=== PATIENT | female | born 1970 | race Caucasian/White ===

== ENCOUNTER 2019-01-23 11:32 | Outpatient (REF) | payer OTHER, SELFPAY | END 2019-01-23 11:52 | LOC: NCHCN 11:32 | PROVIDERS: PCP Nurse Practitioner; Visit Provider Family Medicine | DX: J02.9 Acute pharyngitis, unspecified (principal); R73.03 Prediabetes | CPT/HCPCS: 87070; 87081 ==

== ENCOUNTER 2019-02-04 00:58 | Outpatient (CLI) | payer OTHER, SELFPAY ==
--- NOTE | 2019-02-04 07:40 | DI.MAMMO_ITS ---
SYMPTOM/DIAGNOSIS: SCREENING, Z12.39, [facility], Z00.00 MAMMOGRAMS: Mammograms were interpreted according to the usual protocol including computer analysis with CAD system, tomosynthesis and C view imaging. The breasts are of moderate density with fairly symmetrical distribution of fibroglandular tissue. No dominant mass or clumped microcalcification is identified in either breast. Today's examination is a baseline examination. CONCLUSION: No specific evidence of malignancy at this time. Routine screening examinations are suggested at yearly intervals due to the family history of breast carcinoma. Category 1. Breast density, category B. MQSA ASSESSMENT OF FINDINGS: Negative. Category 1. Patient will receive a letter notifying them of these results. BI-RADS category B. There are scattered areas of fibroglandular density.
== END 2019-02-04 01:18 ==
PROVIDERS: PCP Nurse Practitioner; Visit Provider Nurse Practitioner
DX: Z00.00 Encounter for general adult medical examination without abnormal findings (principal); Z12.31 Encounter for screening mammogram for malignant neoplasm of breast; Z80.3 Family history of malignant neoplasm of breast
CPT/HCPCS: 77063; 77067

== ENCOUNTER 2019-03-18 16:02 | Outpatient (REF) | payer OTHER, SELFPAY ==
[2019-03-18 18:40] LABS: ALT 70 U/L (12-78); AST 31 U/L (15-37); Albumin 3.9 g/dL (3.4-5.0); Alkaline Phosphatase 87 U/L (46-116); Anion Gap 8.4 mmol/L (3-11); BUN 12 mg/dL (7-18); Bilirubin, Total 0.3 mg/dL (0.2-1.0); CO2 28.6 mmol/L (21.0-32.0); CREATININE 0.91 mg/dL (0.55-1.02); Calcium 9.1 mg/dL (8.5-10.1); Calculated LDL 108; Chloride 103 mmol/L (98-107); Cholesterol 197 mg/dL (50-200); Glucose 111 mg/dL (70-100); HDL Cholesterol 43 mg/dL (40-60); Potassium 4.4 mmol/L (3.5-5.1); Sodium 140 mmol/L (136-145); Total Protein 7.4 g/dL (6.4-8.2); Triglyceride 233 mg/dL (30-150)
== END 2019-03-18 16:22 ==
LOC: NCHCN 16:02
PROVIDERS: PCP Nurse Practitioner; Visit Provider Nurse Practitioner
DX: I10 Essential (primary) hypertension (principal); R73.03 Prediabetes
CPT/HCPCS: 80053; 80061; 83721

== ENCOUNTER 2020-03-17 08:34 | Outpatient (REF) | payer OTHER, SELFPAY ==
[2020-03-17 14:50] LABS: ALT 72 U/L (14-59); AST 34 U/L (15-37); Albumin 4.1 g/dL (3.4-5.0); Alkaline Phosphatase 83 U/L (46-116); Anion Gap 9.3 mmol/L (3-11); BUN 16 mg/dL (7-18); Bilirubin, Total 0.5 mg/dL (0.2-1.0); CO2 26.7 mmol/L (21.0-32.0); CREATININE 0.87 mg/dL (0.55-1.02); Calcium 9.2 mg/dL (8.5-10.1); Calculated LDL 153 mg/dL (<100); Chloride 104 mmol/L (98-107); Cholesterol 220 mg/dL (<200); Glucose 112 mg/dL (74-106); HDL Cholesterol 49 mg/dL (40-60); Potassium 4.3 mmol/L (3.5-5.1); Sodium 140 mmol/L (136-145); Total Protein 7.2 g/dL (6.4-8.2); Triglyceride 93 mg/dL (<150)
[2020-03-17 14:55] LABS: Hemoglobin A1C 6.2 % (3.8-5.6)
== END 2020-03-17 08:54 ==
LOC: NCHCN 08:34
PROVIDERS: PCP Nurse Practitioner; Visit Provider Nurse Practitioner
DX: R73.03 Prediabetes (principal); I10 Essential (primary) hypertension
CPT/HCPCS: 80053; 80061; 83036

== ENCOUNTER 2020-03-19 03:01 | Outpatient (CLI) | payer OTHER, SELFPAY ==
--- NOTE | 2020-03-19 | DI.US_ITS ---
EXAM: US PELVIS TRANSVAGINAL CLINICAL HISTORY: <inf_study_reason> TECHNIQUE: Transabdominal and transvaginal imaging was performed using standard protocol. COMPARISON: US PELVIS TRANSVAG from 04/14/2016 FINDINGS: Exam is limited by the patient's body habitus. KIDNEYS: Kidneys are symmetric in size. No evidence of renal calculi. No evidence of hydronephrosis. No renal mass or cyst identified. UTERUS: Anteverted. Uterus measures 9.1 x 4.3 x 4.8 cm. There is a question of a small anterior fibroid. Endometrium: 4 millimeters. Cervix: A few nabothian cysts are seen.. OVARIES: Neither ovary was visualized transabdominally or transvaginally. CUL-DE-SAC: Free fluid: None. IMPRESSION: 1. Limited exam. Normal-sized uterus with question of a small anterior fibroid. Endometrial stripe within normal limits. 2. Nonvisualization of the ovaries. DATA REPOSITORY:
== END 2020-03-19 03:21 ==
PROVIDERS: PCP Nurse Practitioner; Visit Provider Nurse Practitioner
DX: D25.9 Leiomyoma of uterus, unspecified (principal); N93.8 Other specified abnormal uterine and vaginal bleeding
CPT/HCPCS: 76830; 76856

== ENCOUNTER 2020-04-23 01:43 | Outpatient (CLI) | payer OTHER, SELFPAY ==
[2020-04-23 09:05] LABS: TSH (W/Ref FT4) 1.76 uIU/mL (0.36-3.74)
[2020-04-24 09:05] LABS: FSH 30.4 mIU/mL (See Note); Prolactin 5.4 ng/mL (See Table)
== END 2020-04-23 02:03 ==
PROVIDERS: PCP Nurse Practitioner; Visit Provider Obstetrics & Gynecology
DX: N93.9 Abnormal uterine and vaginal bleeding, unspecified (principal); R73.03 Prediabetes
CPT/HCPCS: 36415; 83001; 84146; 84443

== ENCOUNTER 2020-05-05 16:27 | Outpatient (REF) | payer OTHER, SELFPAY ==
--- NOTE | 2020-05-05 15:00 | ENDOMET_PTH ---
PATIENT: Ashley Ly LOC: [facility] U#:[id number] AGE/SX: 49/F ROOM: RE05/05/[address]: Kaitlin White DO : 1970 BED: DIS: 05/05/2020 SPEC #: [id number] RECD: 05/05/20 17:17 STATUS: KENNEDY REQ #: [id number] JONATHON: 05/05/20 15:[address]: Kaitlin White DEPT: Surgical Specimen RECD BY: Carol Keating ENTERED: 05/05/20 17:18 SP TYPE: Endomet OTHR DR: Tea Manuel Tissues: 1 - ENDOMETRIUM BX/CURRETTE 2 - CERVICAL BIOPSY Procedures: GROSS AND MICRO LEVEL 4 Comments: [id number]
== END 2020-05-05 16:47 ==
LOC: LBN 16:27
PROVIDERS: PCP Nurse Practitioner; Visit Provider Obstetrics & Gynecology
DX: N84.1 Polyp of cervix uteri (principal)
CPT/HCPCS: 88305

== ENCOUNTER 2020-09-24 01:45 | Outpatient (CLI) | payer OTHER, SELFPAY ==
[2020-09-24 10:59] LABS: HCT 40.4 % (36.0-46.0); HGB 13.2 g/dL (11.2-15.7); MCH 28.8 pg (27.0-33.0); MCHC 32.7 % (32.0-36.0); MPV 9.7 fL (8.0-11.0); Platelet Count 345 10^3/uL (130-400); RBC 4.59 10^6/uL (3.93-5.22); RDW 11.9 % (11.7-14.6); RDW-SD 38.4 fL; WBC 8.45 10^3/uL (4.4-10.8)
[2020-09-25 18:44] LABS: COVID-19 RT-PCR UVMMC Result Negative (Negative)
== END 2020-09-24 02:05 ==
PROVIDERS: PCP Nurse Practitioner; Visit Provider Obstetrics & Gynecology
DX: D25.9 Leiomyoma of uterus, unspecified (principal); N84.0 Polyp of corpus uteri; Z11.59 Encounter for screening for other viral diseases; Z01.818 Encounter for other preprocedural examination; Z01.812 Encounter for preprocedural laboratory examination
CPT/HCPCS: 36415; 85027; 86850; 86900; 86901; U0003

== ENCOUNTER 2020-09-30 06:10 | Day surgery (SDC) | payer OTHER, SELFPAY ==
[2020-09-30 06:13] VITALS: BP 148/90; PULSE 67; RESP 19; TEMP 36.4; O2SAT 96
[2020-09-30] MEDS: Lactated Ringers 1,000 ML 125 ML IV (07:05)
--- NOTE | 2020-09-30 09:32 | ENDO_PTH ---
PATIENT: Ashley Ly LOC: [facility] U#:[id number] AGE/SX: 49/F ROOM: RE09/30/[address]: Kaitlin White DO : 1970 BED: DIS: 09/30/2020 SPEC #: [id number] RECD: 09/30/20 12:09 STATUS: KENNEDY REShruthi #: [id number] JONATHON: 09/30/20 09:[address]: Kaitlin White DEPT: Surgical Specimen RECD BY: Carol Keating ENTERED: 09/30/20 12:11 SP TYPE: Endo OTHR DR: Tea Manuel Tissues: 1 - ENDOCERVICAL BX/CURRETTE 2 - ENDOMETRIUM BX/CURRETTE Procedures: GROSS AND MICRO LEVEL 4 Comments: [id number]
--- NOTE | 2020-09-30 09:45 | W.PM.OP ---
Date of service: 09/30/20 Time of Service: 09:45 Operative Note Operative Note DATE OF PROCEDURE: 09/30/20 PRE-OP DIAGNOSIS: Thickened endometrium POST-OP DIAGNOSIS: same Uterine fiboids and uterine polyp PROCEDURE: Hysteroscopy with dilation and curettage SURGEON: Kaitlin White ANESTHESIA: MAC ESTIMATED BLOOD LOSS: 5 PATHOLOGY: other (1 endocervix 2. endometrium) COMPLICATIONS: None Patient was transported to: PACU Patient's condition: stable Findings: Suspicion for uterine fibroids Procedure Description: After full informed consent was obtained, patient was taken the operating suite with IV running. She is placed in dorsal supine position and anesthesia administered tested and found to be adequate. She was then placed in the modified dorsal lithotomy position and prepped and draped in usual sterile fashion. Exam under anesthesia revealed a mobile helpful bulky uterus without evidence of adnexal masses. Bladder was drained for approximately 100 cc of clear yellow urine. Speculum was placed into the vaginal vault and a single-tooth tenaculum used to grasp the anterior lip of the cervix. Cervical os was dilated the point that a 5 mm hysteroscope could be passed with ease. With normal saline installation the entire endometrial cavity was inspected. There was noted to be what appeared to be the bulging of a submucous fibroid in the lower anterior segment of the uterus into the endocervical and endometrial canal. Once visualization occurred beyond the fibroid, the endometrium appears smooth and regular with a tiny approximately 1 to 2 mm polyp in the left cornua. At this point endocervical curettage and endometrial curettage was performed attempt was made to grasp the polyp however due to the location of the fibroid instrumentation around the fibroid in the lower uterine segment made it impossible to retrieve the tiny cornual polyp. At this point the procedure was terminated and instrumentation removed. Patient awoke from anesthesia with ease and was returned to recovery room in stable condition. Findings: Smooth endometrium, lower anterior segment fibroid, minute polyp in the left cornua. EBL: Less than 5 cc Complications: None apparent Specimen: #1 endocervical #2 endometrial curettings
[2020-09-30 10:21] VITALS: BP 114/61; PULSE 67; RESP 17; TEMP 36.2; O2SAT 96
== END 2020-09-30 10:49 | disposition home or self-care (01) ==
PROVIDERS: PCP Nurse Practitioner; Visit Provider Obstetrics & Gynecology
PROC: 0UDB8ZZ Extraction of Endometrium, Via Natural or Artificial Opening Endoscopic (ICD-10-PCS; CPT 58558; principal; 2020-09-30 08:45)
DX: R93.89 Abnormal findings on diagnostic imaging of other specified body structures (principal); N85.2 Hypertrophy of uterus; D25.0 Submucous leiomyoma of uterus
CPT/HCPCS: 58558; 81025; 88305; J1885; J2001; J2405

== ENCOUNTER 2021-03-16 16:06 | Outpatient (REF) | payer BC, SELFPAY ==
[2021-03-16 19:47] LABS: Hemoglobin A1C 5.9 % (<5.7)
[2021-03-16 20:07] LABS: ALT 42 U/L (14-59); AST 20 U/L (15-37); Albumin 4.1 g/dL (3.4-5.0); Alkaline Phosphatase 92 U/L (46-116); Anion Gap 11.8 mmol/L (3-11); BUN 14 mg/dL (7-18); Bilirubin, Total 0.4 mg/dL (0.2-1.0); CO2 23.2 mmol/L (21.0-32.0); CREATININE 0.8 mg/dL (0.55-1.02); Calcium 9.6 mg/dL (8.5-10.1); Calculated LDL 154 mg/dL (<100); Chloride 107 mmol/L (98-107); Cholesterol 221 mg/dL (<200); Glucose 110 mg/dL (74-106); HDL Cholesterol 49 mg/dL (40-60); Potassium 4.3 mmol/L (3.5-5.1); Sodium 142 mmol/L (136-145); Total Protein 7.6 g/dL (6.4-8.2); Triglyceride 93 mg/dL (<150)
== END 2021-03-16 16:07 | disposition home or self-care (01) ==
LOC: NCHCN 16:06
PROVIDERS: PCP Nurse Practitioner; Visit Provider Nurse Practitioner
DX: R73.03 Prediabetes (principal); I10 Essential (primary) hypertension
CPT/HCPCS: 80053; 80061; 83036

== ENCOUNTER 2021-03-30 01:54 | Outpatient (CLI) | payer BC, SELFPAY ==
--- NOTE | 2021-03-30 | DI.MAMMO_ITS ---
Exam(s) MAMMO SCREENING EXAM: MAMMO SCREENING CLINICAL HISTORY: SCREENING, Z12.39 TECHNIQUE: Mammograms were interpreted according to the usual protocol including computer analysis w [employer] CAD system, tomosynthesis and C-view imaging. COMPARISON: FINDINGS: The breasts are of moderate density with fairly symmetrical distribution of fibroglandular tissue. N o dominant mass or clumped microcalcification is identified in either breast. The current examinatio n is compared with previous examination of January 2019 and there has been no gross interval change in ap pearance comparison with the prior study. IMPRESSION: No specific evidence of malignancy at this time. Routine screening examinations are suggested at yea rly intervals due to the family history of breast carcinoma. BI-RADS Category 1 - Negative Breast Density - Category B - Scattered areas of fibroglandular density
== END 2021-03-30 02:14 ==
PROVIDERS: PCP Nurse Practitioner; Visit Provider Nurse Practitioner
DX: Z12.31 Encounter for screening mammogram for malignant neoplasm of breast (principal); R92.8 Other abnormal and inconclusive findings on diagnostic imaging of breast; Z80.3 Family history of malignant neoplasm of breast
CPT/HCPCS: 77063; 77067

== ENCOUNTER 2021-10-13 02:58 | Outpatient (CLI) | payer OTHER, SELFPAY ==
[2021-10-13 09:39] LABS: Source Nasal/Nares
[2021-10-13 13:02] LABS: COVID-19 PCR Negative (Negative)
== END 2021-10-13 02:59 | disposition home or self-care (01) ==
LOC: LBO 02:58
PROVIDERS: PCP Nurse Practitioner; Visit Provider Surgery
DX: Z20.822 Contact with and (suspected) exposure to COVID-19 (principal)
CPT/HCPCS: 87635

== ENCOUNTER 2021-10-15 09:19 | Day surgery (SDC) | payer OTHER, SELFPAY ==
--- NOTE | 2021-10-14 12:17 | W.COLOREPORT ---
Colonoscopy Report Date of procedure: 10/15/21 Pre-op diagnosis general: CRC screen Post-op diagnosis procedure note: other (diverticula) Surgeon: Cherri Perdomo Anesthesia Type: General:No Airway Estimated blood loss (mL): 0 Pathology: none sent Complications: None Disposition: same day Prep: Miralax/Dulcolax Retraction Time: 8 Procedure Description: After informed consent was obtained the patient was taken to the procedure room and placed in a left decubitous position. Monitors were applied and a time out was done. The patients name, date of , procedure, allergies to medications and metal in their body was reviewed. The patient was then sedated. Once sedated and comfortable a rectal exam was done. External exam was normal. Internal exam revealed a normal sphincter tone and no palpable masses. The scope was then introduced and retrofelexed. No internal hemorrhoids were identified. The scope was then advanced to the cecum w/out difficulty. The TI and appendiceal orifice were identified. The prep was good. The scope was then slowly retracted over 8 minutes back into the rectum. She hs a few small scattered diverticula in the sigmoid colon. There are no polyps/AVM's/apparent. The scope was removed and the patient was woken up and taken back to Same day surgery in stable condition. The patient tolerated the procedure well and there were no immediate complications. Follow up: The patient should follow up in 10 years unless they develop changes in bowel habits or other new gastrointestinal complaints.
--- NOTE | 2021-10-14 12:19 | PDOC.DSDIS_ITS ---
Discharge Plan Disposition Patient Disposition: HOME Condition: Good Discharge Details Reason For Visit: colon scope Attending Provider: Cherri Perdomo Primary Care Provider: Tea Manuel Home Meds and New Rx's Prescriptions: No Action bisacodyl [Dulcolax (bisacodyl)] 5 mg tablet,delayed release (DR/EC) 5 mg PO ONCE Qty: 4 RF: 0 polyethylene glycol 3350 17 gram/dose powder 17 g PO ONCE Qty: 238 RF: 0 acetaminophen [Tylenol] 325 MG tablet 325 mg PO PRN RF: 0 lisinopril 20 MG tablet 20 mg PO DAILY RF: 0 cholecalciferol (vitamin D3) 25 mcg (1,000 unit) capsule 25 mcg PO DAILY RF: 0 ibuprofen 800 mg tablet 800 mg PO Q8H PRNQty: 30 RF: 1 Discharge Instructions Additional Instructions: DSU Colonoscopy Post- Op Instructions Instructions for Everyone who is given Anesthesia: For your safety, please do the following for the next twenty-four (24) hours: *Do Not operate a motor vehicle (car, truck, motorcycle, etc.) *Do Not drink alcoholic beverages or use any recreational drugs for the first 24 hours or while taking pain medications. The medications in your body may have a reaction that can be dangerous. *Do Not make any important decisions or sign any important papers. Findings:minor diverticula no polyps Follow up: repeat in 10 yrs time 1. No lifting over 20 pounds or strenuous activity for the first 24 hours after your procedure. After 24 hours there are no restrictions on your activity but you may feel fatigued for a few days. 2. After you arrive home you may have a light meal and return to your normal diet as you can tolerate it without feeling sick to your stomach. 3. You may have a bloated, gaseous feeling in your belly (abdomen) after a colon oscopy. Passing gas and belching will help. Walking or lying down on your left side with your knees flexed may relieve the discomfort. Call the office at [phone] (Office) or [phone] (Hospital) right away if you notice any of the following: a.Vomiting of blood or ?coffee ground stools?. b.Rectal bleeding 1Tbsp, blood clots or continuous bleeding. c.Severe belly (abdominal) pain. d.A hard distended belly (abdomen) and an inability to pass gas. 4. Please don?t expect to have a normal BM (bowel movement) for 2-3 days after your procedure. 5. If there are questions regarding the findings of your procedure, please contact your doctor 6. If you are unable to contact your doctor with a problem, contact the hospital at [phone]. 7. Continue all your regular medications unless directed otherwise. I understand the above instructions and have no questions. Signature of Patient or Adult Escort Name of Responsible Adult Escort Signature of Nurse Date/Time Activity:: see above Diet:: see above Discharge Orders Discharge Orders: Discharge Order (Routine); Ordered 10/14/21 Ordered By: Cherri Perdomo DS: Diagnosis Discharge Diagnosis (1) Screening for colon cancer: Status: Acute (2) Diverticula of colon: Status: Acute
[2021-10-15 09:25] VITALS: BP 153/86; PULSE 74; RESP 16; TEMP 36.6; O2SAT 100
--- NOTE | 2021-10-15 10:27 | ANES.PREOP_ITS ---
General Info Date of Service Date Performed: 10/15/21 Height: 5 ft 7 in Weight: 110.7 kg Body Mass Index (BMI): 38.2 Surgical Procedure: Operation Date: 10/15/21 10:05 Proposed Procedures Side Surgeon gabino Perdomo, DO Meds Allergies and Home Medications Allergies Allergy/AdvReac Type Severity Reaction Status Date / Time No Known Allergies Allergy Verified 10/15/21 09:41 Home Medication Medication Instructions Recorded acetaminophen [Tylenol] 325 mg PO PRN 04/15/16 lisinopril 20 mg PO DAILY tab-cap 04/15/16 ibuprofen 800 mg PO Q8H PRN #30 tab 09/30/20 cholecalciferol (vitamin D3) 25 25 mcg PO DAILY 04/16/21 mcg (1,000 unit) capsule bisacodyl 5 mg tablet,delayed 5 mg PO ONCE #4 tab 09/30/21 release polyethylene glycol 3350 17 17 g PO ONCE #238 g 09/30/21 gram/dose oral powder Current Visit Medications: Current Medications Generic Name Dose Route Start Last Admin Trade Name Freq PRN Reason Stop Dose Admin Hyoscyamine Sulfate 0.125 mg 10/14/21 12:17 Hyoscyamine 0.125 Mg Sl/Oral/Chew SL DIRECTED PRN Ringer's Solution 1,000 mls @ 80 mls/hr 10/15/21 06:00 IV 11/01/21 23:59 [facility] IV Miscellaneous Supplies 1 each 10/15/21 06:00 Iv Access IV 11/01/21 23:59 DIRECTED ODETTE Ondansetron HCl 4 mg 10/14/21 12:17 Ondansetron 4 Mg/2 Ml Vial IVP Q4H PRN PRN Nausea / Vomiting Sodium Chloride 0 ml 10/15/21 06:00 Normal Saline Flush 10 Ml Syr IV 11/01/21 23:59 PRN PRN Sodium Chloride 0 ml 10/15/21 06:00 Normal Saline 10 Ml Vial IJ 11/01/21 23:59 DIRECTED PRN Sterile Water 0 ml 10/15/21 06:00 Water,Injection,Sterile 10 Ml Vial IJ 11/01/21 23:59 DIRECTED PRN PFSH Active Problems Active Problems: Problem Status Onset Code BMI greater than 40 Prediabetes R73.03 Screening for colon cancer Z12.11 Medical History Medical History Abnormal uterine bleeding (AUB) BMI 40.0-44.9, adult Cervical lesion Gout History of miscarriage Suction completion Hyperlipidemia Menopause Postmenopausal bleeding Tobacco dependence in remission Vaginal spotting White coat syndrome with hypertension per pt. pt. states her BP is normal while not at doctor's office, monitors it at home 147/82 (last reading) Surgical History Surgical History (Updated 10/15/21 @ 09:41 by Jacque Rushing RN) section H/O dilation and curettage Status post hysteroscopic ablation of endometrium Lavelle teeth extracted Tobacco Smoking/Tobacco Use Status: Former Tobacco Use Alcohol Alcohol Intake: current Alcohol intake frequency: a few times a week Alcohol type: beer and hard liquor Substance Use Substance use: Never Substance use type: does not use Details: no alcohol for several Vital Signs and Lab Results Vital Signs Most Recent Vital Signs in EMR: Most Recent Vital Signs Temp Pulse Resp BP Pulse Ox 36.6 C 74 16 153/86 H 100 10/15/21 09:25 10/15/21 09:25 10/15/21 09:25 10/15/21 09:25 10/15/21 09:25 Lab Results Blood Type / Crossmatch: No Data to Display Complete Blood Count: No Data to Display Complete Metabolic Panel: No Data to Display Liver Function Panel: No Data to Display Coagulation Panel: No Data to Display Cardiac Panel: No Data to Display Arterial Blood Gas: No Data to Display Venous Blood Gas: No Data to Display Pancreas Panel: No Data to Display Thyroid Panel: 2 No Data to Display Infectious Disease: Coronavirus (COVID-19)(PCR) Negative (Negative) 10/13/21 08:44 10/13/21 Coronavirus 2019 Source Nasal/Nares 10/13/21 08:44 10/13/21 Blood Cultures: No Data to Display Toxicology Panel: No Data to Display Panel: No Data to Display Anesthesia Assessment and Plan Anesthesia History Personal History: No History of Anesthesia Complications Family History: No Family History of Anesthesia Complications Exercise Tolerance Exercise Tolerance: Metabolic Equivalents>4 Pertinent Negatives Pertinent Negatives: No Major Cardiovascular Symptoms or Complaints and No Major Pulmonary Symptoms or Complaints Cardiac & Pulmonary Exam Cardiac Exam: Normal S1/S2 Heart Sounds Pulmonary Exam: Clear Bilateral Breath Sounds Implantable Cardiac Device Does patient have a Pacemaker or an ICD?: No Airway Exam Known Difficult Airway: No Mallampati Class: 2 Mouth Opening: Normal (> 3cm) Thyromental Distance: Greater than 3 cm Neck Range of Motion: Full ROM Neck Circumference: Thick Teeth Condition: Normal Dentition ASA Classification ASA Score: ASA 2 Emergency Case?: No NPO Status NPO Status: NPO Clears >2 hours, Solids >8 hours Status Status: Not Relevant due to Medical History Anesthesia Plan Resuscitation Status: Full Code Anesthesia Technique: General Anesthesia Airway Planned: Natural Airway Monitors Used: Standard Monitors
[2021-10-15 10:29] VITALS: BMI 38.2
[2021-10-15] MEDS: Lactated Ringers 1,000 ML 80 ML IV (10:32)
[2021-10-15 11:10] VITALS: BP 133/60; PULSE 69; RESP 18; TEMP 36.6; O2SAT 97
[2021-10-15 11:38] VITALS: BP 142/95; PULSE 66; RESP 16; TEMP 37; O2SAT 99
--- NOTE | 2021-10-15 11:57 | W.ANESPOSTOP ---
Postoperative Evaluation Date, Time and Location Date Performed: 10/15/21 Time Performed: 11:57 Patient Location: Day Surgery Unit Vital Signs Most Recent Imported Vital Signs: Most Recent Vital Signs Temp Pulse Resp BP Pulse Ox 36.6 C 69 18 133/60 97 10/15/21 11:10 10/15/21 11:10 10/15/21 11:10 10/15/21 11:10 10/15/21 11:10 Pain Score Most Recent Pain Score: Most Recent Pain Score Pain Level 0 10/15/21 11:10 Assessment Mental Status: Awake (Alert & Oriented to Patient Baseline) Airway and Respiratory Function: Patent airway with normal (patient baseline) respiratory exam Cardiovascular Function: Hemodynamically Stable Hydration Status: Adequately Hydrated Nausea & Vomiting: No Nausea or Vomiting Pain: Pt. Denies Any Pain Peripheral Nerve Block: Patient did not receive a nerve block
== END 2021-10-15 12:15 | disposition home or self-care (01) ==
PROVIDERS: PCP Nurse Practitioner; Visit Provider Surgery
PROC: 0DJD8ZZ Inspection of Lower Intestinal Tract, Via Natural or Artificial Opening Endoscopic (ICD-10-PCS; CPT 45378; principal; 2021-10-15 10:00)
DX: Z12.11 Encounter for screening for malignant neoplasm of colon (principal); K57.30 Diverticulosis of large intestine without perforation or abscess without bleeding
CPT/HCPCS: 45378; J2001

== ENCOUNTER 2022-12-15 14:06 | Outpatient (REF) | payer OTHER, SELFPAY ==
--- NOTE | 2022-12-15 13:30 | PAPFT_PTH ---
PATIENT: Ashley Ly LOC: [facility] U#:[id number] AGE/SX: 52/F ROOM: RE12/15/[address]: SHANNON SPAIN : 1970 BED: DIS: 12/15/2022 SPEC #: [id number] RECD: 12/15/22 18:10 STATUS: KENNEDY REQ #: [id number] JONATHON: 12/15/22 13:[address]: Shannon Spain [facility] Cytology RECD BY: Carol Keating ENTERED: 12/15/22 18:10 SP TYPE: PAPFT OTHR DR: Tea Manuel Tissues: 1 - CX/ENDOCX FOR PAP SMEARS Procedures: PAP THIN PREP/[facility] Screening HPV DNA PROBE Comments: [id number]
== END 2022-12-15 14:07 | disposition home or self-care (01) ==
LOC: NCHCN 14:06
PROVIDERS: PCP Nurse Practitioner; Visit Provider Nurse Practitioner Family
DX: Z12.4 Encounter for screening for malignant neoplasm of cervix (principal); Z00.00 Encounter for general adult medical examination without abnormal findings; Z11.51 Encounter for screening for human papillomavirus (HPV)
CPT/HCPCS: 88142; 87624

== ENCOUNTER 2022-12-26 16:12 | Outpatient (REF) | payer OTHER, SELFPAY ==
[2022-12-26 16:56] LABS: ALT 38 U/L (14-59); AST 24 U/L (15-37); Albumin 3.8 g/dL (3.4-5.0); Alkaline Phosphatase 82 U/L (46-116); Anion Gap 6.7 mmol/L (3-11); BUN 16 mg/dL (7-18); Bilirubin, Total 0.3 mg/dL (0.2-1.0); CO2 26.3 mmol/L (21.0-32.0); Calcium 9.6 mg/dL (8.5-10.1); Calculated LDL 137 mg/dL (<100); Chloride 104 mmol/L (98-107); Cholesterol 211 mg/dL (<200); Estimated GFR 67.78 (mL/min/1.73m2); Glucose 110 mg/dL (74-106); HDL Cholesterol 57 mg/dL (40-60); Potassium 4.5 mmol/L (3.5-5.1); Sodium 137 mmol/L (136-145); Total Protein 7.6 g/dL (6.4-8.2); Triglyceride 89 mg/dL (<150)
[2022-12-26 17:00] LABS: Hemoglobin A1C 5.9 % (<5.7)
== END 2022-12-26 16:13 | disposition home or self-care (01) ==
LOC: NCHCN 16:12
PROVIDERS: PCP Nurse Practitioner; Visit Provider Nurse Practitioner Family
DX: E78.5 Hyperlipidemia, unspecified (principal); R73.03 Prediabetes; I10 Essential (primary) hypertension
CPT/HCPCS: 80053; 80061; 83036

== ENCOUNTER 2023-03-31 00:18 | Outpatient (CLI) | payer OTHER, SELFPAY ==
--- NOTE | 2023-03-31 07:30 | DI.MAMMO_ITS ---
Exam(s) MAMMO SCREENING EXAM: MAMMO SCREENING CLINICAL HISTORY: screening, Z12.39 TECHNIQUE: Mammograms were interpreted according to the usual protocol including computer analysis w [employer] CAD system, tomosynthesis and C-view imaging. COMPARISON: 2018 and 2020 FINDINGS: The breasts are composed of mainly fatty density , Breast Density category A. No suspicious masses or suspicious microcalcifications are seen. No skin thickening or abnormal axillary lymph nodes are seen. There has been no significant change from prior exams. IMPRESSION: BI-RADS Category 1, Negative mammogram Yearly screening mammography is recommended. Breast Density - Category A, fatty density. A negative radiographic report should not delay biopsy if a dominant or clinically suspicious mass is present. Up to ten percent of cancers are not identified on mammography. A negative report may reinforce clinical impression. Adenosis and dense breasts may obscure an underlying neoplasm. False positive reports average 6 to 10%. Patient will receive a letter notifying them of these results.
== END 2023-03-31 00:38 ==
LOC: DI 00:18
PROVIDERS: PCP Nurse Practitioner Family; Visit Provider Nurse Practitioner Family
DX: Z12.31 Encounter for screening mammogram for malignant neoplasm of breast (principal)
CPT/HCPCS: 77063; 77067

== ENCOUNTER 2023-04-04 04:29 | Observation (INO) | payer OTHER, SELFPAY ==
[2023-04-04] VITALS (41 sets, daily range): BP systolic 123–174; BP diastolic 71–98; PULSE 55–84; RESP 12–26; TEMP 35.9–36.8; O2SAT 89–100; BMI 37.5
--- NOTE | 2023-04-04 04:30 | DI.CT_ITS ---
Exam(s) CT ABDOMEN PELVIS W EXAM: CT ABDOMEN PELVIS W CLINICAL HISTORY: upper abd pain nausea. TECHNIQUE: Imaging Protocol: Axial computed tomography images with coronal and sagittal reformatted images were created and reviewed CONTRAST MATERIAL: Intravenous: Omnipaque 350 Contrast volume:100 ml Oral: no COMPARISON: No exams were available for comparison FINDINGS: ABDOMEN: Lung Bases: Normal where visualized. Liver: Mildly enlarged. Pset-vd-cjyjxjhw hepatic steatosis. No measurable mass. Gallbladder and biliary tract: Gallstones noted, the largest measuring 2.5 cm, partially calcified. There is gallbladder distention is well as mild gallbladder wall thickening. There may be trace amou nt of pericholecystic fluid or findings are suspicious for acute cholecystitis. Pancreas: Normal density, no abnormal calcifications or inflammatory process. Spleen: Normal. Kidneys: Normal size, contour and axis. No radiodense stones or obstructive uropathy. No suspicious m asses seen. Adrenal glands: No masses seen. Abdominal Aorta: Abdominal portion non-dilated. Mild atherosclerotic changes. Soft tissues: Unremarkable. PELVIS: Bladder: Nearly empty. No calculi.No focal mass. Bowel: Mild diverticulosis. No evidence of diverticulitis. No obstruction. No bowel wall thickeni ng. Appendix normal. Peritoneal cavity: No ascites, collection or mesenteric inflammatory response. Bones: Unremarkable for age. Reproductive organs: Within normal limits. Lymph nodes: Unremarkable. Impression: Gallstones and gallbladder wall thickening, suspicious for acute cholecystitis. RADIATION DOSE DELIVERED: 1,372.66mGy.cm Total DLP DATA REPOSITORY: All CT scans at this facility are submitted to the National Radiology Data Registry (NRDR) Dose Index Registry (DIR) with the [employer] (ACR). RADIATION OPTIMIZATION: All CT scans at this facility use at least one of these dose optimization te chniques: automated exposure control; mA and/or kV adjustment per patient size (includes targeted exa ms where dose is matched to clinical indication); or iterative reconstruction.
--- NOTE | 2023-04-04 04:44 | ED.GENADUL_ITS ---
Discharge Plan Disposition Patient Disposition: Admit to [facility] Condition: Stable Discharge Details Chief Complaint: Abd Prob Clinical Impression: Cholecystitis Primary Care Provider: Shannon Spain ED Provider: Junaid Mohan Home Meds and New Rx's Prescriptions: No Action lisinopril 20 mg tablet 20 mg PO DAILY Patient Comments: TAKE ONE TABLET BY MOUTH EVERY DAY Ozempic 0.25 mg or 0.5 mg (2 mg/3 mL) pen injector 0.5 mg SUBCUT QWEEK Patient Comments: INJECT 0.5MG SUBCUTANEOUSLY ONCE A WEEK Medical Decision Making 52-year-old female history of diabetes hypertension, obesity, recently started on Ozempic presents with upper abdominal pain nausea, pain radiating from epigastrium around to back bilaterally. No urinary symptoms. No history of abdominal surgery. Consider cholecystitis versus gastritis versus enteritis versus less likely appendicitis lower suspicion for UTI or kidney stone versus medication reaction. Screening labs CT abdomen pelvis, analgesia antiemetics fluids close reassessment. 5: [address] imaging concerning for cholecystitis. Started on Zosyn, will continue with fluids and analgesia. Patient has been n.p.o. since 7 PM yesterday. Discussed case with Dr. Humphries general surgery who plans for cholecystectomy HPI General Date/Time Provider Initiated Documentation: 04/04/23 04:33 . HPI Narrative: 52-year-old female history of diabetes hypertension, recently started Ozempic, presents with upper abdominal pain nausea. Denies history of abdominal surgery Related Data Home Medications Medication Instructions Recorded Confirmed lisinopril 20 mg tablet 20 mg PO DAILY 04/04/23 04/04/23 semaglutide 0.25 mg or 0.5 mg (2 0.5 mg subcut QWEEK 04/04/23 04/04/23 mg/3 mL) subcutaneous pen injector (Ozempic) Allergies Allergy/AdvReac Type Severity Reaction Status Date / Time No Known Allergies Allergy Verified 04/04/23 04:42 General Stated Complaint: Abd Prob DEONTE: 3 Review of Systems Narrative: Review of Systems Constitutional: negative Eyes: negative ENT: negative Cardiovascular: negative Respiratory: negative Gastrointestinal: Abdominal pain, nausea : negative Musculoskeletal: negative Skin: negative Neurologic: negative Psych: negative PFSH All Active Problems (Updated 04/04/23 @ 05:59 by Junaid Mohan MD) Cholecystitis (Acute) Normal colonoscopy (Acute) Diverticula of colon (Acute) minor Dx confined to the sigmoid colon BMI greater than 40 (Acute) Prediabetes (Acute) Screening for colon cancer (Acute) Medical History (Updated 04/04/23 @ 05:59 by Junaid Mohan MD) Abnormal uterine bleeding (AUB) BMI 40.0-44.9, adult Cervical lesion Gout History of miscarriage Suction completion Hyperlipidemia Menopause Postmenopausal bleeding Tobacco dependence in remission Vaginal spotting White coat syndrome with hypertension per pt. pt. states her BP is normal while not at doctor's office, monitors it at home 147/82 (last reading) Surgical History (Updated 10/20/21 @ 14:45 by Rosangela Montgomery RN) section H/O dilation and curettage History of colonoscopy (~10/15/21) Status post hysteroscopic ablation of endometrium [place] teeth extracted Family History Father Stroke s/p carotid endoarterectomy Daughter Anxiety Social History (Updated 09/30/21 @ 09:44 by ANNIKA Brothers) Smoking/Tobacco Use Status: Former Tobacco Use Quit Date: 10/02/07 Smoking risk assessment performed?: Yes Alcohol Intake: current Alcohol Intake frequency: a few times a week Alcohol type: beer and hard liquor Drug use: Never Substance use type: does not use Details: no alcohol for several Do you feel safe at home: Yes Do you feel safe in your relationship?: Yes Exam Narrative Exam Narrative: Physical Examination General: alert, awake, cooperative, resting comfortably, no acute distress HEENT: normocephalic, atraumatic; PERRL, EOM intact, conjunctiva normal; no nasal discharge; moist mucous membranes, oral and pharyngeal mucosa normal, tolerating secretions Neck: supple, trachea midline; full ROM Chest: normal to inspection Respiratory: normal respiratory effort, speaking in full sentences Cardiac: regular rate, regular rhythm, S1S2 intact, no murmurs rubs or gallops GI: abdomen soft, non-tender, non-distended; no palpable mass or hepatosplenomegaly Skin: no lesions, rashes or trauma appreciated Neuro: AAOx3, normal speech, moving all extremities Psych: Appropriate mood and affect Course Vital Signs Vital signs: Vital Signs Temperature 36.2 C L 04/04/23 04:33 Pulse 76 04/04/23 04:33 Respiratory Rate 20 04/04/23 04:33 Blood Pressure 174/83 H 04/04/23 04:33 Pulse Oximetry 98 04/04/23 04:33 Temperature 36.2 C L 04/04/23 04:33 Temperature Source Temporal Artery Scan 04/04/23 04:33 Pulse 76 04/04/23 04:33 Respiratory Rate 20 04/04/23 04:33 Respiratory Effort Normal 04/04/23 04:35 Blood Pressure 174/83 H 04/04/23 04:33 Blood Pressure Position Sitting 04/04/23 04:33 Pulse Oximetry 98 04/04/23 04:33 Pain Level 7 04/04/23 04:33
[2023-04-04] MEDS: MORPHine 4 MG/ML SYR 2 MG IVP (04:52)
[2023-04-04] MEDS: Ondansetron 4 MG/2 ML VIAL IVP (04:53)
[2023-04-04] MEDS: Normal Saline 1,000 ML 1000 ML IV (04:57)
[2023-04-04 05:07] LABS: ALT 43 U/L (14-59); AST 20 U/L (15-37); Albumin 4.3 g/dL (3.4-5.0); Alkaline Phosphatase 95 U/L (46-116); Anion Gap 7.9 mmol/L (3-11); BUN 14 mg/dL (7-18); Bilirubin, Total 0.4 mg/dL (0.2-1.0); CO2 29.1 mmol/L (21.0-32.0); CREATININE 1.1 mg/dL (0.55-1.02); Calcium 10.2 mg/dL (8.5-10.1); Chloride 102 mmol/L (98-107); Estimated GFR 60.46 (mL/min/1.73m2); Glucose 119 mg/dL (74-106); Lipase 25 U/L (16-77); Potassium 3.9 mmol/L (3.5-5.1); Sodium 139 mmol/L (136-145); Total Protein 8.5 g/dL (6.4-8.2)
[2023-04-04] MEDS: Omnipaque 350 MG/ML 100 ML BTL IJ (05:11)
[2023-04-04 05:12] LABS: Abs Immature Grans 0.16 10^3/uL (0.0-0.06); Absolute Basophil Count 0.06 10^3/uL (0.0-0.2); Absolute Eosinophil Count 0.11 10^3/uL (0.0-0.7); Absolute Lymphocyte Count 2.27 10^3/uL (1.2-3.4); Absolute Monocyte Count 0.56 10^3/uL (0.1-0.8); Basophils % 0.6; Eosinophils % 1.1; HCT 42.8 % (36.0-46.0); HGB 14.6 g/dL (11.2-15.7); Immature Grans % 1.6; Lymphocytes % 22.8; MCH 29.7 pg (27.0-33.0); MCHC 34.1 % (32.0-36.0); MCV 87 fL (80-95); MPV 10.2 fL (8.0-11.0); Monocytes % 5.6; Neutrophils % 68.3; Platelet Count 365 10^3/uL (130-400); RBC 4.91 10^6/uL (3.93-5.22); RDW 11.9 % (11.7-14.6); RDW-SD 38.3 fL; WBC 9.96 10^3/uL (4.4-10.8)
[2023-04-04] MEDS: Normal Saline Flush 10 ML SYR IVP ×2 (05:14→11:46)
[2023-04-04] MEDS: Normal Saline - Diluent 50 ML VIAL IJ (05:20)
--- NOTE | 2023-04-04 05:31 | DI.VRAD_ITS ---
PROCEDURE INFORMATION: Exam: CT Abdomen And Pelvis With Contrast Exam date and time: 04/04/2023 5:12 AM Age: 52 years old Clinical indication: Abdominal pain; Localized; Prior surgery; Surgery date: 6+ months; Surgery type: C section; Patient HX: Upper abd pain, nausea TECHNIQUE: Imaging protocol: Computed tomography of the abdomen and pelvis with contrast. Radiation optimization: All CT scans at this facility use at least one of these dose optimization techniques: automated exposure control; mA and/or kV adjustment per patient size (includes targeted exams where dose is matched to clinical indication); or iterative reconstruction. Contrast material: OMNIPAQUE 350; Contrast volume: 100 ml; Contrast route: INTRAVENOUS (IV); COMPARISON: US PELVIS TRANSVAGINAL 03/19/2020 8:10 AM FINDINGS: Liver: Normal appearing liver. Gallbladder and bile ducts: Prominent gallbladder distension. Gallstones with the largest visualized stone measuring 2.5 cm. Apparent gallbladder wall thickening with hazy indistinctness of the gallbladder margins suggesting acute cholecystitis. No biliary dilatation. Pancreas: Normal appearing pancreas. Spleen: Normal appearing spleen. Adrenal glands: Normal appearing adrenal glands. Kidneys and ureters: Normal appearing kidneys. No hydronephrosis. No obstructing ureteral stones. Stomach and bowel: No oral contrast. Stomach moderately distended with fluid and ingested material. No small bowel dilatation to suggest obstruction. Normal-appearing colon. No evidence of diverticulitis or colitis. Appendix: Appendix partially obscured but normal in caliber and appearance through its visualized portion. Intraperitoneal space: No gross ascites or free air. Vasculature: Normal caliber abdominal aorta. Lymph nodes: No pathologically enlarged mesenteric, retroperitoneal, or pelvic sidewall lymph nodes. Urinary bladder: Urinary bladder partially collapsed but grossly unremarkable, as seen. Reproductive: Anteverted uterus, normal in size. Ovaries not well evaluated but grossly normal in size. Bones/joints: No acute fracture seen among the bones of the abdomen or pelvis. Soft tissues: Tiny fat-containing ventral hernia at the umbilicus, doubtful clinical significance. IMPRESSION: Prominent gallbladder distension. Gallstones with the largest visualized stone measuring 2.5 cm. Apparent gallbladder wall thickening with hazy indistinctness of the gallbladder margins suggesting acute cholecystitis. Surgery consultation recommended. Dictated and Authenticated by: Rajat Teresa MD. Ordering:KAREEM Quiroga MD
[2023-04-04 05:37] LABS: Bilirubin Negative (Negative); Blood Negative (Negative); Clarity Clear (Clear); Glucose Negative (Negative); Ketones Negative (Negative); Leukocyte Esterase Negative (Negative); Nitrite Negative (Negative); Specific Gravity 1.015 (1.005-1.025); Urobilinogen 0.2 mg/dL (Up to 0.2); pH 7.5 (5-8)
[2023-04-04] MEDS: Ketorolac 15 MG/ML VIAL IVP (06:12)
[2023-04-04] MEDS: PIPERACILLIN/TAZO 3.375 GM in Normal Saline 50 ML IVPB (06:12)
[2023-04-04] MEDS: Normal Saline 1,000 ML 150 ML IV (06:53)
--- NOTE | 2023-04-04 07:33 | HPE_ITS ---
Date of service: 04/04/23 Time of Service: 07:33 Assessment and Plan Assessment and plan (1) Cholecystitis: Status: Acute Assessment and plan: I agree that this is most consistent with acute cholecystitis. She has already gotten some antibiotics. We talked about the role of cholecystectomy for acute cholecystitis. I explained the risks and benefits of laparoscopic and open cholecystectomy, and I think she has a good understanding of this. She was able to consent and would like to proceed with cholecystectomy. History of Present Illness History of Present Illness Chief Complaint: Abdominal pain Narrative: Ashley is 52 years old. She began experiencing mid epigastric abdominal pain that radiated towards her right flank last night. It increased in severity and intensity. It was worse with food. She had associated nausea without vomiting. She came to the emergency department and was found to have a leukocytosis around 10,000. She underwent a CAT scan of the abdomen and pelvis that demonstrated cholelithiasis, and pericholecystic fluid consistent with cholecystitis. Her past surgical history is most significant for a section. She has no known drug allergies. Past medical history significant for hypertension treated with lisinopril, and diabetes and obesity treated with Ozempic. Review of Systems Constitutional Constitutional: Reports difficulty sleeping and Reports poor appetite Eyes Eyes: Reports system reviewed and no additional complaints, except as documented ENT Ears, Nose, Mouth, and Throat: Reports system reviewed and no additional compl aints, except as documented Cardiovascular Cardiovascular: Denies chest pain and Denies dyspnea Respiratory Respiratory: Denies chest congestion, Denies cough and Denies dyspnea Gastrointestinal Gastrointestinal: Reports abdominal pain, Denies change in bowel habits, Reports nausea and Denies vomiting Genitourinary Genitourinary: Reports system reviewed and no additional complaints, except as documented Musculoskeletal Musculoskeletal: Reports system reviewed and no additional complaints, except as documented Psychiatric Psychiatric: Reports system reviewed and no additional complaints, except as do cumented Hematologic/Lymphatic Hematologic/Lymphatic: Denies easy bleeding and Denies easy bruising PFSH All Active Problems Cholecystitis (Acute) Normal colonoscopy (Acute) Diverticula of colon (Acute) minor Dx confined to the sigmoid colon BMI greater than 40 (Acute) Prediabetes (Acute) Screening for colon cancer (Acute) Medical History Abnormal uterine bleeding (AUB) BMI 40.0-44.9, adult Cervical lesion Gout History of miscarriage Suction completion Hyperlipidemia Menopause Postmenopausal bleeding Tobacco dependence in remission Vaginal spotting White coat syndrome with hypertension per pt. pt. states her BP is normal while not at doctor's office, monitors it at home 147/82 (last reading) Surgical History section H/O dilation and curettage History of colonoscopy (~10/15/21) Status post hysteroscopic ablation of endometrium [place] teeth extracted Family History Father Stroke s/p carotid endoarterectomy Daughter Anxiety Social History Smoking/Tobacco Use Status: Former Tobacco Use Quit Date: 10/02/07 Smoking risk assessment performed?: Yes Alcohol Intake: current Alcohol Intake frequency: a few times a week Alcohol type: beer and hard liquor Drug use: Never Substance use type: does not use Details: no alcohol for several Do you feel safe at home: Yes Do you feel safe in your relationship?: Yes Meds Allergies and Home Medications Allergies Allergy/AdvReac Type Severity Reaction Status Date / Time No Known Allergies Allergy Verified 04/04/23 04:42 Home Medications Medication Instructions Recorded Confirmed Type lisinopril 20 mg tablet 20 mg PO DAILY 04/04/23 04/04/23 History semaglutide 0.25 mg or 0.5 mg (2 0.5 mg subcut QWEEK 04/04/23 04/04/23 History mg/3 mL) subcutaneous pen injector (Ozempic) Exam Const General: cooperative, comfortable and no acute distress Resp Effort & Inspection: normal respiratory effort Auscultation: clear to auscultation bilaterally Cardio Rate: regular rate Rhythm: regular rhythm Heart Sounds: S1 normal and S2 normal GI Inspection: normal to inspection Palpation: soft, no guarding and tender (Right upper quadrant) Percussion: normal to percussion Auscultation: normal bowel sounds Skin General skin exam: no rashes or lesions noted Extrem Right lower extremity: no edema Left lower extremity: no edema Results Imaging Abdomen CT scan report/results: report reviewed and image reviewed CT scan - pelvis: report reviewed and image reviewed Labs 04/04/23 04:45 04/04/23 04:45 Labs: Laboratory Results - last 24 hr 04/04/23 04/04/23 04/04/23 04:45 04:45 05:02 WBC 9.96 RBC 4.91 Hgb 14.6 Hct 42.8 MCV 87 MCH 29.7 MCHC 34.1 RDW 11.9 Plt Count 365 MPV 10.2 Immature Gran % 1.6 Neutrophils % 68.3 Lymphocytes % 22.8 Monocytes % 5.6 Eosinophils % 1.1 Basophils % 0.6 Nucleated RBC % 0.0 Absolute Neutrophils 6.80 H Absolute Lymphocytes 2.27 Absolute Monocytes 0.56 Absolute Eosinophils 0.11 Absolute Basophils 0.06 Sodium 139 Potassium 3.9 Chloride 102 Carbon Dioxide 29.1 Anion Gap 7.9 BUN 14 Creatinine 1.1 H Est GFR (CKD-EPI 2020) 60.46 Glucose 119 H Calcium 10.2 H Total Bilirubin 0.4 AST 20 ALT 43 Alkaline Phosphatase 95 Total Protein 8.5 H Albumin 4.3 Lipase 25 Urine Color Yellow Urine Clarity Clear Urine pH 7.5 Ur Specific [place] 1.015 Urine Protein Negative Urine Ketones Negative Urine Blood Negative Urine Nitrite Negative Urine Bilirubin Negative Urine Urobilinogen 0.2 Ur Leukocyte Esterase Negative Urine Glucose Negative Last Vital Signs Temp 97.2 F L 04/04/23 04:33 Pulse 70 04/04/23 06:31 Resp 15 04/04/23 06:40 BP 147/73 H 04/04/23 06:31 Pulse Ox 98 04/04/23 06:40 Time Spent Time spent with Patient: 40-54 minutes Time was spent: preparing to see the patient(eg.review tests), indepentently interpreting results and counseling the patient
--- NOTE | 2023-04-04 07:42 | ANES.PREOP_ITS ---
General Info Date of Service Date Performed: 04/04/23 Height: 5 ft 7 in Weight: 108.862 kg Body Mass Index (BMI): 37.5 Meds Allergies and Home Medications Allergies Allergy/AdvReac Type Severity Reaction Status Date / Time No Known Allergies Allergy Verified 04/04/23 04:42 Home Medication Medication Instructions Recorded lisinopril 20 mg tablet 20 mg PO DAILY 04/04/23 semaglutide 0.25 mg or 0.5 mg (2 0.5 mg subcut QWEEK 04/04/23 mg/3 mL) subcutaneous pen injector (Ozempic) Current Visit Medications: Current Medications Generic Name Dose Route Start Last Admin Trade Name Freq PRN Reason Stop Dose Admin Sodium Chloride 1,000 mls @ 150 mls/hr 04/04/23 06:00 04/04/23 06:53 Saline 1000ml Bag IV 150 mls/hr INFUSION ODETTE Administration IV Miscellaneous Supplies 1 each 04/04/23 06:00 Iv Access-Emergency Dept IV DIRECTED ODETTE Iohexol 100 ml 04/04/23 05:15 04/04/23 05:11 Omnipaque 350 Mg/Ml 100 Ml Btl IJ 05/04/23 23:59 100 ml DIRECTED ODETTE Administration Ondansetron HCl 4 mg 04/04/23 05:59 Ondansetron 4 Mg/2 Ml Vial IVP Q4H PRN PRN Sodium Chloride 0 ml 04/04/23 05:12 04/04/23 05:14 Normal Saline Flush 10 Ml Syr IVP 10 ml PRN PRN Administration Sodium Chloride 50 ml 04/04/23 05:30 04/04/23 05:20 Normal Saline - Diluent 50 Ml Vial IJ 50 ml .FOR DI USE ODETTE Administration Sodium Chloride 0 ml 04/04/23 05:59 Normal Saline Flush 10 Ml Syr IVP PRN PRN PFSH Active Problems Active Problems: Problem Status Onset Code Cholecystitis K81.9 Normal colonoscopy Diverticula of colon K57.30 BMI greater than 40 Prediabetes R73.03 Screening for colon cancer Z12.11 Medical History Medical History Abnormal uterine bleeding (AUB) BMI 40.0-44.9, adult Cervical lesion Gout History of miscarriage Suction completion Hyperlipidemia Menopause Postmenopausal bleeding Tobacco dependence in remission Vaginal spotting White coat syndrome with hypertension per pt. pt. states her BP is normal while not at doctor's office, monitors it at home 147/82 (last reading) Surgical History Surgical History section H/O dilation and curettage History of colonoscopy (~10/15/21) Status post hysteroscopic ablation of endometrium [place] teeth extracted Tobacco Smoking/Tobacco Use Status: Former Tobacco Use Alcohol Alcohol Intake: current Alcohol intake frequency: a few times a week Alcohol type: beer and hard liquor Substance Use Substance use: Never Substance use type: does not use Details: no alcohol for several Vital Signs and Lab Results Vital Signs Most Recent Vital Signs in EMR: Most Recent Vital Signs Temp Pulse Resp BP Pulse Ox 36.2 C L 70 15 147/73 H 98 04/04/23 04:33 04/04/23 06:31 04/04/23 06:40 04/04/23 06:31 04/04/23 06:40 Lab Results 04/04/23 04:45 04/04/23 04:45 Blood Type / Crossmatch: No Data to Display Complete Blood Count: White Blood Count 9.96 10^3/uL (4.4-10.8) 04/04/23 04:45 Red Blood Count 4.91 10^6/uL (3.93-5.22) 04/04/23 04:45 Hemoglobin 14.6 g/dL (11.2-15.7) 04/04/23 04:45 Hematocrit 42.8 % (36.0-46.0) 04/04/23 04:45 Platelet Count 365 10^3/uL (130-400) 04/04/23 04:45 Complete Metabolic Panel: Sodium 139 mmol/L (136-145) 04/04/23 04:45 Potassium 3.9 mmol/L (3.5-5.1) 04/04/23 04:45 Chloride 102 mmol/L (98-107) 04/04/23 04:45 Carbon Dioxide 29.1 mmol/L (21.0-32.0) 04/04/23 04:45 BUN 14 mg/dL (7-18) 04/04/23 04:45 Creatinine 1.1 mg/dL (0.55-1.02) H 04/04/23 04:45 Est GFR (CKD-EPI 2020) 60.46 (mL/min/1.73m2) 04/04/23 04:45 Calcium 10.2 mg/dL (8.5-10.1) H 04/04/23 04:45 Albumin 4.3 g/dL (3.4-5.0) 04/04/23 04:45 Glucose 119 mg/dL (74-106) H 04/04/23 04:45 Liver Function Panel: Alanine Aminotransferase (ALT/SGPT) 43 U/L (14-59) 04/04/23 04: 45 Aspartate Amino Transf (AST/SGOT) 20 U/L (15-37) 04/04/23 04:45 Coagulation Panel: No Data to Display Cardiac Panel: No Data to Display Arterial Blood Gas: No Data to Display Venous Blood Gas: No Data to Display Pancreas Panel: Lipase 25 U/L (16-77) 04/04/23 04:45 Thyroid Panel: No Data to Display Infectious Disease: No Data to Display Blood Cultures: No Data to Display Toxicology Panel: No Data to Display Panel: No Data to Display Anesthesia Assessment and Plan Anesthesia History Personal History: No History of Anesthesia Complications Family History: No Family History of Anesthesia Complications Exercise Tolerance Exercise Tolerance: Metabolic Equivalents>4 Pertinent Negatives Pertinent Negatives: No Major Cardiovascular Symptoms or Complaints and No Major Pulmonary Symptoms or Complaints Cardiac & Pulmonary Exam Cardiac Exam: Normal S1/S2 Heart Sounds Pulmonary Exam: Clear Bilateral Breath Sounds Implantable Cardiac Device Does patient have a Pacemaker or an ICD?: No Airway Exam Known Difficult Airway: No Mallampati Class: 2 Mouth Opening: Normal (> 3cm) Thyromental Distance: Greater than 3 cm Neck Range of Motion: Full ROM Neck Circumference: Thick Teeth Condition: Normal Dentition ASA Classification ASA Score: ASA 2 Emergency Case?: Yes NPO Status NPO Status: NPO Clears >2 hours, Solids >8 hours Status Status: Not Relevant due to Medical History Anesthesia Plan Resuscitation Status: Full Code Anesthesia Technique: General Anesthesia Airway Planned: Endotracheal Tube Monitors Used: Standard Monitors
[2023-04-04] MEDS: Lactated Ringers 1,000 ML 30 ML IV (08:46)
[2023-04-04] MEDS: Bupivacaine 0.25% Pres-Free 30 ML VIAL (09:12)
--- NOTE | 2023-04-04 10:20 | GB_PTH ---
PATIENT: Ashley Ly LOC: ICU U#:[id number] AGE/SX: 52/F ROOM: ICU.219 RE04/04/[address]: Javad Humphries MD : 1970 BED: A DIS: 04/04/2023 SPEC #: [id number] RECD: 04/06/23 12:32 STATUS: KENNEDY REQ #: [id number] JONATHON: 04/04/23 10:[address]: Javad Humphries DEPT: Surgical Specimen RECD BY: Carol Keating ENTERED: 04/06/23 12:32 SP TYPE: GB OTHR DR: AYALA GAUTHIER Tissues: 1 - GALLBLADDER Procedures: GROSS AND MICRO LEVEL 3 Comments: [id number]
--- NOTE | 2023-04-04 10:40 | W.PM.OP ---
Date of service: 04/04/23 Time of Service: 10:40 Operative Note Operative Note DATE OF PROCEDURE: 04/04/23 PRE-OP DIAGNOSIS: Acute cholecystitis POST-OP DIAGNOSIS: same PROCEDURE: Laparoscopic cholecystectomy SURGEON: Javad Humphries TEMPERATURE INSPECTOR: Kirk Herrera ANESTHESIA TYPE: Local By Surgeon and General LMA/ETT Refer to Anesthesia Record ESTIMATED BLOOD LOSS: 50 PATHOLOGY: other (Gallbladder) COMPLICATIONS: None Patient was transported to: PACU Patient's condition: stable Indications: Ashley is a 52-year-old woman with midepigastric and right upper quadrant pain consistent with cholecystitis. CAT scan confirms the diagnosis. Findings: Acute calculus cholecystitis Procedure Description: After satisfactory induction of general anesthesia, I prepped and draped the abdomen in usual fashion. Next, I began with a periumbilical incision. I dissected down to the fascia and elevated it with [place] clamps. I incised it sharply. Next, I passed a 12 mm operating port in the umbilical site. I secured it to the fascia with 0 Vicryl stitches. I then insufflated the peritoneal cavity. Next I inserted a 5 mm 30 degree scope and examined the underlying viscera. There was no evidence of injury created upon entry. I then placed the patient in some reverse Trendelenburg and left side down positioning. Then, with the assistance of the laparoscope, I used local anesthetic to anesthetize the midepigastric and 2 right upper quadrant port sites. Under the vision of the laparoscope, I passed 3 more 5 mm ports. I then grasped the gallbladder fundus and elevated cephalad. I began by dissecting the gallbladder infundibulum. I worked in a lateral to medial fashion. The cystic duct was displaced quite laterally, by what appeared to be a large common hepatic artery the branch of the right hepatic was immediately posterior to the cystic duct. Great care was taken to spare this. As the dissection continued medially, I was able to identify the cystic artery. After I skeletonized the cystic duct and cystic artery, with a satisfactory critical view of safety, I doubly clipped and divided them. I then used electrocautery to dissect the gallbladder off the gallbladder fossa. I passed the gallbladder into an Endo Catch bag and removed it by way of the umbilical site. I examined the surgical field. It was hemostatic. I then removed the 5 mm ports under the vision of the laparoscope. Finally, I removed the umbilical port site and closed the fascia with Vicryl stitches. Sites were irrigated, and the skin was closed with subcuticular stitches. Bandages were applied, patient was awakened from anesthesia, and transferred to the recovery unit.
[2023-04-04] MEDS: MORPHine 2 MG/ML SYR IVP ×2 (11:45→13:01)
--- NOTE | 2023-04-04 12:06 | W.ANESPOSTOP ---
Postoperative Evaluation Date, Time and Location Date Performed: 04/04/23 Time Performed: 11:25 Patient Location: Intensive Care Unit Vital Signs Most Recent Imported Vital Signs: Most Recent Vital Signs Temp Pulse Resp BP Pulse Ox 35.9 C L 62 16 140/84 100 04/04/23 11:25 04/04/23 11:25 04/04/23 11:25 04/04/23 08:45 04/04/23 11:25 Pain Score Most Recent Pain Score: Most Recent Pain Score Pain Level 3 04/04/23 11:25 Assessment Mental Status: Arousable with meaningful communication Airway and Respiratory Function: Patent airway with normal (patient baseline) respiratory exam Cardiovascular Function: Hemodynamically Stable Hydration Status: Adequately Hydrated Nausea & Vomiting: No Nausea or Vomiting Pain: Pain is tolerable per patient Peripheral Nerve Block: Patient did not receive a nerve block
--- NOTE | 2023-04-04 14:39 | DSE_ITS ---
Date of service: 04/04/23 Time of Service: 14:39 DS: Diagnosis Discharge Diagnosis (1) Cholecystitis: Status: Acute Asessment and Plan: s/p Cholecystetomy Discharge Plan Disposition Patient Disposition: Home Condition: Good Discharge Details Reason For Visit: Cholecystitis Admit Date/Time: 04/04/23 10:48 Admit Provider: Javad Humphries Attending Provider: Javad Humphries Primary Care Provider: Shannon Spain Hospital Course Hospital Course: Ashley presented with midepigastric abdominal pain. She was diagnosed with acute cholecystitis. And she underwent cholecystectomy. Home Meds and New Rx's Prescriptions: New tramadol 50 mg tablet 50 mg PO Q8H PRN (Reason: pain) Qty: 9 0RF Rx Instructions: Take one tablet by mouth up to every 8 hours if needed for severe pain Continued lisinopril 20 mg tablet 20 mg PO DAILY Patient Comments: TAKE ONE TABLET BY MOUTH EVERY DAY Ozempic 0.25 mg or 0.5 mg (2 mg/3 mL) pen injector 0.5 mg SUBCUT QWEEK Patient Comments: INJECT 0.5MG SUBCUTANEOUSLY ONCE A WEEK Discharge Instructions Instructions: Laparoscopic Cholecystectomy (GEN) Additional Instructions: 1. Resume all of your medications. 2. Ice packs and heating pads will be useful for pain. 3. Okay to use tylenol and ibuprofen over the counter as needed. Use tramadol as needed for severe pain. 4. Leave bandage in place for 24 hours, then remove. 5. Shower with warm soapy water. Pat dry. Use a bandaid if needed to protect your clothing. 6. No soaking or tub baths until I see you in the office. 7. No heavy lifting until I see you in the office. 8.Call the office (or go directly to the emergency room after hours) if you notice any of the following: Develop chills (warm to touch), or if you have a thermometer and your temperature is above 101 Difficulty breathing or difficultly swallowing Persistent vomiting Any bleeding ? exceeding one tablespoon 6. Call your physician if the site where your intravenous was started becomes red, swollen, painful, and warm to touch. Activity:: No heavy lifting Equipment/Supplies:: No Equipment Needed Diet:: As Tolerated DS: Summary Time Spent with Patient providing and/or coordinating discharge services: Less than 30 minutes Status at Discharge Functional status at discharge: independent ambulation Overall status at discharge: patient is progressing back to baseline Mental Status: mental status grossly normal Speech and Movement: speech and movement normal Mood: congruent mood Affect: normal affect Exam Const General: cooperative and comfortable Orientation: alert, awake and oriented x3 GI Inspection: normal to inspection Palpation: soft and tender Psych Mental Status: mental status grossly normal Speech and Movement: speech and movement normal Mood: congruent mood Affect: normal affect DS: Data Vitals/I&O Vitals and I&O: Vital Signs Temperature 96.6 F L 04/04/23 11:25 Temperature Source Temporal Artery Scan 04/04/23 11:25 Pulse 64 04/04/23 13:31 Pulse 67 04/04/23 13:31 Respiratory Rate 22 04/04/23 13:31 Respiratory Effort Normal, Non-Labored 04/04/23 11:25 Respiratory Depth Normal 04/04/23 11:25 Respiratory Pattern Normal 04/04/23 11:25 Blood Pressure 156/86 H 04/04/23 13:31 Blood Pressure Mean 101 04/04/23 13:31 Blood Pressure Position Supine 04/04/23 11:25 Pulse Oximetry 98 04/04/23 13:01 Oxygen Delivery Method Nasal Cannula 04/04/23 11:25 Oxygen Flow Rate 2 04/04/23 11:25 Pain Level 2 04/04/23 14:01 Intake & Output 04/03/23 04/04/23 04/04/23 23:59 11:59 23:59 Intake Total 1450 / 1810 360 / 1810 Output Total 510 / 510 Balance 1450 / 1300 -150 / 1300 Weight 243 lb 2.718 oz Intake: IV 1450 / 1450 Oral 360 / 360 Output: Urine 510 / 510 Other: Urine Color Yellow Urine Appearance Clear Urine Odor Normal Voiding Methods Bedside Commode Data Completed and Pending Labs on day of discharge: Labs from last 24 hours 04/04/23 04/04/23 04/04/23 05:02 04:45 04:45 WBC 9.96 RBC 4.91 Hgb 14.6 Hct 42.8 MCV 87 MCH 29.7 MCHC 34.1 RDW 11.9 Plt Count 365 MPV 10.2 Immature Gran % 1.6 Neutrophils % 68.3 Lymphocytes % 22.8 Monocytes % 5.6 Eosinophils % 1.1 Basophils % 0.6 Nucleated RBC % 0.0 Absolute Neutrophils 6.80 H Absolute Lymphocytes 2.27 Absolute Monocytes 0.56 Absolute Eosinophils 0.11 Absolute Basophils 0.06 Sodium 139 Potassium 3.9 Chloride 102 Carbon Dioxide 29.1 Anion Gap 7.9 BUN 14 Creatinine 1.1 H Est GFR (CKD-EPI 2020) 60.46 Glucose 119 H Calcium 10.2 H Total Bilirubin 0.4 AST 20 ALT 43 Alkaline Phosphatase 95 Total Protein 8.5 H Albumin 4.3 Lipase 25 Urine Color Yellow Urine Clarity Clear Urine pH 7.5 Ur Specific [place] 1.015 Urine Protein Negative Urine Ketones Negative Urine Blood Negative Urine Nitrite Negative Urine Bilirubin Negative Urine Urobilinogen 0.2 Ur Leukocyte Esterase Negative Urine Glucose Negative PFSH All Active Problems Cholecystitis (Acute) Normal colonoscopy (Acute) Diverticula of colon (Acute) minor Dx confined to the sigmoid colon BMI greater than 40 (Acute) Prediabetes (Acute) Screening for colon cancer (Acute) Medical History Abnormal uterine bleeding (AUB) BMI 40.0-44.9, adult Cervical lesion Gout History of miscarriage Suction completion Hyperlipidemia Menopause Postmenopausal bleeding Tobacco dependence in remission Vaginal spotting White coat syndrome with hypertension per pt. pt. states her BP is normal while not at doctor's office, monitors it at home 147/82 (last reading) Surgical History section H/O dilation and curettage History of colonoscopy (~10/15/21) Status post hysteroscopic ablation of endometrium [place] teeth extracted Family History Father Stroke s/p carotid endoarterectomy Daughter Anxiety Social History Smoking/Tobacco Use Status: Former Tobacco Use Quit Date: 10/02/07 Smoking risk assessment performed?: Yes Alcohol Intake: current Alcohol Intake frequency: a few times a week Alcohol type: beer and hard liquor Drug use: Never Substance use type: does not use Details: no alcohol for several Do you feel safe at home: Yes Do you feel safe in your relationship?: Yes Time Spent with Patient Time Spent with Patient: <45 minutes Time was spent: counseling the patient and care coordination
== END 2023-04-04 15:30 | disposition home or self-care (01) ==
LOC: ER 06:51 → SUR 08:38 → ICU 11:05 → ER 16:50 → SUR 16:50 → ICU 04-05 09:37
PROVIDERS: Admitting Provider Surgery; Emergency Provider Emergency Medicine; PCP Nurse Practitioner Family; Visit Provider Surgery
PROC: 0FT44ZZ Resection of Gallbladder, Percutaneous Endoscopic Approach (ICD-10-PCS; CPT 47562; principal; 2023-04-04 08:05)
DX: K81.2 Acute cholecystitis with chronic cholecystitis (principal); I10 Essential (primary) hypertension; E11.9 Type 2 diabetes mellitus without complications; E66.9 Obesity, unspecified; Z68.38 Body mass index [BMI] 38.0-38.9, adult; Z79.899 Other long term (current) drug therapy; M10.9 Gout, unspecified; Z87.891 Personal history of nicotine dependence; E78.5 Hyperlipidemia, unspecified
CPT/HCPCS: 47562; 36415; 80053; 83690; 96374; 96375; 99285; 74177; 81003; 85025; 88304; G0378; J1100; J1885; J2250; J2270; J2405; J2543; J2704; J3490

== ENCOUNTER 2025-06-06 05:33 | Outpatient (CLI) | payer OTHER, SELFPAY ==
--- NOTE | 2025-06-06 | DI.US_ITS ---
Exam(s) US ABDOMEN LIMITED EXAM: US ABDOMEN LIMITED CLINICAL HISTORY: ELEVATED ALT MEASUREMENT R74.01 TECHNIQUE: Ultrasound of the right upper quadrant performed using standard protocol. COMPARISON: CT CT ABDOMEN PELVIS W from 04/04/2023 FINDINGS: LIVER: Mildly enlarged at 18.1 cm in length. Moderately increased echogenicity in the crease through transmission consistent with hepatic steatosis.Echogenicity. No focal liver lesions are seen.. GALLBLADDER: Status post cholecystectomy. BILIARY SYSTEM: No intrahepatic or extrahepatic biliary ductal dilation. RIGHT KIDNEY: Normal size. No evidence of renal calculi. No evidence of hydronephrosis. No suspicious renal mass. No cyst identified. PANCREAS: Normal where visualized. ABDOMINAL AORTA AND IVC: Visualized portions normal caliber. ASCITES: None seen. IMPRESSION: Moderate hepatic steatosis. Status post cholecystectomy. No biliary dilatation. DATA REPOSITORY:
--- NOTE | 2025-06-06 07:48 | DI.MAMMO_ITS ---
Exam(s) MAMMO SCREENING EXAM: MAMMO SCREENING CLINICAL HISTORY: SCREENING MAMMO Z12.31 TECHNIQUE: Mammograms were interpreted according to the usual protocol including computer analysis with CAD system, tomosynthesis and C-view imaging. COMPARISON: 2018 through 2022 FINDINGS: The breasts are composed of mainly fatty density , Breast Density category A. No suspicious masses or suspicious microcalcifications are seen. No skin thickening or abnormal axillary lymph nodes are seen. There has been no significant change from prior exams. IMPRESSION: BI-RADS Category 1, Negative mammogram Yearly screening mammography is recommended. Breast Density- Category A - The breast are almost entirely fatty. Breast density Category C or D implies that the patient has dense breast tissue. Dense breast tissue can make it harder to find cancer on a mammogram. Dense breast tissue is also associated with an increased risk of breast cancer. This information about the result of the mammogram report was provided to the patient to raise their awareness. Use this report when you speak with the patient about their risks for breast cancer, which includes their family history. At that time, you may recommend additional screening tests (Ultrasound or MRI) as these tests may add significant information. A negative radiographic report should not delay biopsy if a dominant or clinically suspicious mass is present. Up to ten percent of cancers are not identified on mammography. A negative report may reinforce clinical impression. Adenosis and dense breasts may obscure an underlying neoplasm. False positive reports average 6 to 10%. Patient will receive a letter notifying them of these results.
== END 2025-06-06 05:53 ==
PROVIDERS: PCP Nurse Practitioner Family; Visit Provider Nurse Practitioner Family
DX: Z12.31 Encounter for screening mammogram for malignant neoplasm of breast (principal); R74.01 Elevation of levels of liver transaminase levels; R92.313 Mammographic fatty tissue density, bilateral breasts
CPT/HCPCS: 77063; 77067; 76705